=== PATIENT | male | born 1955 | race Caucasian/White ===

== ENCOUNTER → 2024-08-24 13:50 | Outpatient (REF) | payer OTHER, SELFPAY | LOC: HWRAD 13:50 | PROVIDERS: ATTENDING PHYSICIAN Family Medicine | DX: M54.50 Low back pain, unspecified (principal) | CPT/HCPCS: 72110 ==

== ENCOUNTER → 2024-09-29 11:54 | Outpatient (REF) | payer OTHER, SELFPAY | LOC: MRI 3T 11:54 | PROVIDERS: ATTENDING PHYSICIAN Pain Medicine Interventional Pain Medicine; FAMILY PHYSICIAN Family Medicine | DX: M54.16 Radiculopathy, lumbar region (principal) | CPT/HCPCS: 72148 ==

== ENCOUNTER 2024-10-08 08:19 | Emergency (ER) | payer OTHER, SELFPAY ==
[2024-10-08 08:31] VITALS: BP 155/90
[2024-10-08 09:35] VITALS: BP 143/70
--- NOTE | 2024-10-08 09:39 | ED.GENMED ---
History of Present Illness
General
Chief Complaint: Back Pain
Time Seen by Provider: 10/08/24 09:15
History of Present Illness
History of Present Illness:
Patient is a 68-year-old man with history of A-fib on Xarelto presenting to the emergency department with back pain. Patient states that since August he has had right-sided lower back pain that radiates down his right leg. He went to his primary
care doctor who started him on a Medrol Dosepak as well as physical therapy. He is currently still with physical therapy. The pain did improve with the Medrol Dosepak however reoccurred. He then went to see an orthopedic surgeon who prescribed
him prednisone 20 mg daily. He does state that he has 2 days left of it. He did have an MRI completed. I did review patient's MRI completed on September 29 which does show severe compression at the right L5-S1 secondary to a cyst as well as left
disc herniation at L4-L5. Patient denies any fevers chills. No spinal injections. No saddle anesthesia. No urinary incontinence no urinary retention. No weight loss. No night sweats. No abdominal pain. No trauma. This does feel similar to
his sciatica however the pain has become more severe and relentless so he came in for further options.
Past History
Past History
ED Past Medical History: HTN, [place] and Other (Genital herpes, rosacea)
ED Past Surgical History: Cardiac (Cardiac stent 01/2015) and Other ([place] tooth extraction)
Social History
Tobacco: Non-smoker
Alcohol: None
Drug: None
Personal:
Living: with family
Phy Exam
Physical Exam
Physical Exam:
GENERAL: in no acute distress
HEENT: normocephalic, extraocular movements intact
Back: No midline spinal tenderness
NECK: normal inspection
RESPIRATORY: no respiratory distress, clear to auscultation bilaterally
CARDIOVASCULAR: regular rate and rhythm
ABDOMEN/: soft, non-distended, non-tender to palpation, no rebound or guarding
EXTREMITIES: non-tender, no edema/swelling
NEUROLOGIC: awake and alert, moves all extremities, no gross motor or sensory
SKIN: warm
Course
Orders/Labs/Results
Orders:
Orders
10/08/24 09:36
Acetaminophen [Tylenol] 1,000 mg PO NOW STA
Prednisone [Deltasone] 50 mg PO NOW STA
10/08/24 09:45
Lidocaine [Lidocaine 4% Patch] 1 patch TOPICAL DAILY
Apply Lidocaine patch(s) to:: right lower back
Vital Signs
Initial and Last Documented VS:
Initial Vital Signs
Temp Pulse Resp BP Pulse Ox
98.5 F 73 18 155/90 99
10/08/24 08:31 10/08/24 08:31 10/08/24 08:31 10/08/24 08:31 10/08/24 08:31
Last Documented Vital Signs
Temp Pulse Resp BP Pulse Ox
98.5 F 54 16 130/83 97
10/08/24 08:31 10/08/24 10:40 10/08/24 10:40 10/08/24 10:40 10/08/24 10:40
MDM/Problems Addressed
Differential Diagnosis Includes:
Patient is a 68-year-old man presenting to the emergency department with right-sided lower back pain that radiates down his leg for the past month. Vitals are unremarkable and exam shows no midline spinal tenderness. There are no red flags to
suggest cauda equina epidural abscess discitis. Patient exam not consistent with renal etiology or aortic pathology. After shared decision making we will give prednisone here in the emergency department as well as Tylenol and a lidocaine patch.
*Critical Care Note
Total Time (30-74mins, 75-104mins- exclusive of procedures): Not Applicable
Update Note
Update Note:
On reevaluations patient's pain has significantly improved. It is not resolved. I did discuss I cannot get the pain completely away but could decrease it to a manageable level. Patient advised on using Tylenol and lidocaine outpatient. He is
advised not to put heating pad over the lidocaine patch. Regarding the prednisone we did discuss increasing the dose versus keeping it the same for the neck few days. Patient at this time opted to keep the prednisone the same as he does not want
to be on systemic steroids for a prolonged period of time which is reasonable. Patient will give his orthopedic surgeon on-call to see if that he get his appointment adjusted. Strict return precautions given. Will discharge at this time
ED Attending Note
-
Portions of this chart may have been created with voice recognition software.� Occasional wrong word or��sound alike� substitutions may have occurred due to the inherent limitations of voice recognition software.
Discharge Plan
Departure
Patient Disposition: Home (Routine Discharge)
Date of Disposition: 10/08/24
Time of Disposition: 10:45
Patient with high blood pressure during this ER visit?: No
Discharge Problem:
Sciatica
Instructions: Sciatica (DC)
Prescriptions:
No Action
methotrexate sodium 2.5 MG tablet
7.5 mg PO TU@0800
[id number]-arn-VK-lycopen-lutein [Centrum Silver] 1 EACH tablet
1 ea PO DAILY
nitroglycerin 0.4 MG tablet, sublingual
0.4 mg sublingual [id number] PRN (Reason: Chest Pain ) Qty: 25 2RF
Patient Comments:
pt states last used 'sometime in
folic acid 0.4 MG tablet
0.8 mg PO DAILY
lisinopril 5 MG tablet
5 mg PO DAILY
fluticasone propionate 1 SPRAY spray,suspension
2 spray intranasal DAILYPRN PRN (Reason: ALLERGIES)
atorvastatin 40 MG tablet
40 mg PO DAILY
fluocinonide 1 APPLIC cream
0 applic topical BID PRN (Reason: psoriasis total body)
metoprolol tartrate 25 MG tablet
25 mg PO BID
rivaroxaban [Xarelto] 20 MG tablet
20 mg PO QPM
golimumab [Simponi] 100 MG/ML pen injector
50 mg SC MONTHLY
aspirin 81 MG tablet,delayed release (DR/EC)
81 mg PO DAILY Qty: 0 0RF
Referrals:
Andrea Khan, DO [Family Provider] -
Activity Restrictions/Additional Instructions:
We discussed pain medications:
You may take Tylenol (also known as Acetaminophen) for pain.
You may take 1000mg Acetaminophen (two extra-strength tablets) per dose, which should be taken every 6 hours.
If you have normal strength Tylenol, you can take 650mg (two normal strength tablets) every 4-6 hours.
Never take more than as directed on the bottle.
You may also benefit from using a Lidocaine Patch (also known as 'Salon Pas'), which is an over the counter pain patch.
Place it just over the site of pain, avoiding areas of skin damage, as per instructions on the patch.
Please see your primary care doctor soon to be reevaluated and to make sure that you are improving. We have included information about establishing care with a doctor if you do not have one.
We talked about your evaluation, diagnosis, and treatment in the Emergency Department today. You must see your primary doctor for recheck and followup care in order to evaluate your progress or any changes. Have your doctor recheck the test
results/information from the ED visit. As discussed, RETURN to the ED if you develop worsening/changing symptoms or have no improvement in symptoms after the treatments provided.
Interventions
Interventions:
*Risk Screen - Suicide Last Done: 10/08/24 08:31
*General Assessment Last Done: 10/08/24 09:35
ED- Fall Risk Assessment Last Done: 10/08/24 09:35
*ED COVID-19 Vaccine History Last Done: 10/08/24 09:35
ED-Musculoskeletal Assessment Last Done: 10/08/24 09:35
Discharge Date and Time
Print Language: BENINESE
[2024-10-08 09:40] VITALS: BMI 28.9
[2024-10-08] MEDS: DELTASONE 50 MG PO (09:48)
[2024-10-08] MEDS: TYLENOL 1000 MG PO (09:49)
[2024-10-08] MEDS: LIDOCAINE 4% PATCH 1 PATCH TOPICAL (09:49)
[2024-10-08 10:40] VITALS: BP 130/83
--- NOTE | 2024-10-08 10:44 | EDRN ---
Dr. Domínguez in room w/ pt at this time.
--- NOTE | 2024-10-08 10:46 | EDRN ---
Pt ate all of the pancakes (3 tiny pancakes). Pt states he did not like fruit in fruit cup and raisin bran cereal so did not eat these.
--- NOTE | 2024-10-08 11:10 | EDRN ---
Pain returned to severe just prior to discharge. Pt has declined narcotics during this stay. Pt was informed that pain from sciatica is severe. Pt was informed that steroids, tylenol and lidocaine patch are best that we can do at this time and may
not take away the pain. Back discharge instructions discussed w/ pt and pt voiced understanding. Pt left to [facility] to await his spouse to take hime home via w/c.
== END 2024-10-08 11:15 | disposition home or self-care (01) ==
LOC: EMR 08:19
PROVIDERS: EMERGENCY PHYSICIAN Student in an Organized Health Care Education/Training Program; FAMILY PHYSICIAN Family Medicine
DX: M54.41 Lumbago with sciatica, right side (principal); M79.604 Pain in right leg; I48.91 Unspecified atrial fibrillation; I10 Essential (primary) hypertension; I25.2 Old myocardial infarction; Z79.01 Long term (current) use of anticoagulants; Z95.5 Presence of coronary angioplasty implant and graft; Z88.8 Allergy status to other drugs, medicaments and biological substances; Z79.82 Long term (current) use of aspirin
CPT/HCPCS: 99283

== ENCOUNTER 2024-12-28 06:07 | Day surgery (SDC) | payer OTHER, SELFPAY ==
[2024-12-14 11:30] LABS: Hematocrit 41.5 % (39.0-52.0); Hemoglobin 14.1 g/dL (13.0-18.0); Mean Corpuscular Hgb 32.2 pg (27.0-31.0); Mean Corpuscular Volume 94.7 fL (80.0-94.0); Mean Platelet Volume 12.2 fL (7.4-10.4); Platelet Count 171 10^3/uL (130-400); Red Blood Cell Count 4.38 10^6/uL (4.70-6.10); Red Cell Dist. Width 13.4 % (11.5-14.5); White Blood Cell Count 6.3 10^3/uL (4.8-10.8)
[2024-12-14 12:03] LABS: ALT (SGPT) 25 U/L (0-50); AST (SGOT) 29 U/L (17-59); Albumin 3.8 g/dl (3.5-5.0); Alkaline Phosphatase 72 U/L (38-126); Blood Urea Nitrogen 16 mg/dl (9-20); Calcium 9.1 mg/dl (8.4-10.2); Carbon Dioxide 30 mmol/L (22-30); Chloride 104 mmol/L (98-107); Glucose 95 mg/dl (70-99); Potassium 4.4 mmol/L (3.5-5.1); Sodium 141 mmol/L (135-145); Total Bilirubin 0.8 mg/dl (0.2-1.3); Total Protein 6.2 g/dl (6.3-8.2); eGFR > 60.00
[2024-12-14 14:06] VITALS: BMI 26.6
[2024-12-23 15:32] VITALS: BMI 26.6
[2024-12-28] VITALS (7 sets, daily range): BP systolic 137–162; BP diastolic 74–78
[2024-12-28] MEDS: CELEBREX 200 MG PO (07:52)
[2024-12-28] MEDS: TYLENOL 1000 MG PO (07:52)
[2024-12-28] MEDS: LYRICA 150 MG PO (07:52)
[2024-12-28] MEDS: METHOCARBAMOL 750 MG PO (07:53)
[2024-12-28] MEDS: NORMOSOL-R/PLASMALYTE-A 1000 IV (07:55)
== END 2024-12-28 11:15 | disposition home or self-care (01) ==
LOC: SDS 06:07
PROVIDERS: ATTENDING PHYSICIAN Orthopaedic Surgery Orthopaedic Surgery of the Spine; FAMILY PHYSICIAN Family Medicine; OTHER PHYSICIAN Internal Medicine Cardiovascular Disease
DX: M71.38 Other bursal cyst, other site (principal); M54.50 Low back pain, unspecified; Z79.01 Long term (current) use of anticoagulants
CPT/HCPCS: 63267; 88304; 36415; 72020; 80053; 85027; 87070

== ENCOUNTER 2025-04-20 12:18 | Emergency (ER) | payer OTHER, SELFPAY ==
[2025-04-20 12:41] VITALS: BP 143/89
[2025-04-20 13:07] LABS: Hematocrit 42.9 % (39.0-52.0); Hemoglobin 15.0 g/dL (13.0-18.0); Mean Corp Hgb Conc. 35.0 g/dL (33.0-37.0); Mean Corpuscular Volume 91.5 fL (80.0-94.0); Nucleated Red Blood Cells % 0 % (-); Platelet Count 178 10^3/uL (130-400); Red Cell Dist. Width 15.4 % (11.5-14.5)
[2025-04-20 13:29] LABS: ALT (SGPT) 24 U/L (0-50); AST (SGOT) 27 U/L (17-59); Albumin 4.1 g/dl (3.5-5.0); Alkaline Phosphatase 88 U/L (38-126); Blood Urea Nitrogen 17 mg/dl (9-20); Calcium 9.3 mg/dl (8.4-10.2); Carbon Dioxide 28 mmol/L (22-30); Chloride 103 mmol/L (98-107); Glucose 104 mg/dl (70-99); Potassium 4.5 mmol/L (3.5-5.1); Sodium 137 mmol/L (135-145); Total Protein 7.1 g/dl (6.3-8.2); eGFR > 60.00
[2025-04-20 13:41] LABS: Troponin I < 0.012 ng/ml
[2025-04-20 15:19] VITALS: BMI 26.6
[2025-04-20 15:20] VITALS: BP 195/90
--- NOTE | 2025-04-20 15:56 | ED.GENMED ---
History of Present Illness
General
Chief Complaint: Chest Pain
Source: patient
Exam Limitations: none
Time Seen by Provider: 04/20/25 15:28
Nursing documentation reviewed up to this point in time: agreed with
History of Present Illness
History of Present Illness:
69-year-old male with medical history of hypertension, hyperlipidemia, atrial fibrillation/flutter on Xarelto, CAD status post stent, BPH who presents to the emergency room with his for evaluation of chest pain. Patient notes that he has
recently been undergoing treatment for a left chest wall cellulitis�he reports that he developed redness, tenderness in the left chest/shoulder about a month ago, waited 10 days before he sought care and was started on antibiotics (Keflex). He took
a 10-day course of antibiotics with improvement but not complete resolution, saw his primary doctor a few days ago and was written for an additional 5-day course of Keflex and is on day 2 of 5 of the second course with continued improvement of his
symptoms. He is in the emergency room today for evaluation of left chest pain. He reports that this has been ongoing for the past 2 to 3 days. He reports a vague aching pain in the left chest that radiates to the left scapular region. Somewhat
worse with deep breaths, no other triggering or relieving factors noted. He reports mild associated shortness of breath. He denies any associated cough. He denies any associated fever. He has not had any nausea, vomiting, diaphoresis, abdominal
pain. He denies any other acute complaints.
Past History
Past History
ED Past Medical History: HTN, [place] and Other (Genital herpes, rosacea)
ED Past Surgical History: Cardiac (Cardiac stent 01/2015) and Other ([place] tooth extraction)
Social History
Tobacco: Non-smoker
Alcohol: None
Drug: None
Personal:
Living: with family
Review of Systems
Review of Systems
All Other Systems: ROS reviewed and negative except as documented in HPI and ROS
Constitutional: Denies fever or chills
Respiratory: Reports trouble breathing; Denies cough
Cardiac: Reports chest pain; Denies diaphoresis or palpitations
ABD/GI: Denies abdominal pain, nausea, vomiting or diarrhea
: Denies flank pain
Musculoskeletal: Denies neck pain or back pain
Neurological: Denies dizzy or headache
Phy Exam
Physical Exam
Physical Exam:
General: Awake, alert, oriented x3; no acute distress
Head: Normocephalic, atraumatic
Eyes: Conjunctiva normal, sclera anicteric
Throat: Airway intact, handling secretions
Neck: Trachea midline, no JVD
Lungs: Clear to auscultation bilaterally, no wheezing, rales, rhonchi
Heart: Regular rate and rhythm, no murmurs, gallops, or rubs; very small area of mild erythema left upper chest wall that is not indurated, warm, tender to the touch with no pustules or vesicles noted
Abd: Soft, non distended, nontender
Neuro: No gross deficits
Skin: Chest wall findings as above
Extremities: No edema in extremities, no calf tenderness, equal pulses in all extremities
Scores
Heart Failure Risk
Heart Failure Risk Score: Not Applicable
Heart Score for Chest Pain Patients
STEMI patient?: No
History: Slightly or Non-Suspicious
ECG: Normal
Age: >/= 65 years
Risk Factors: >/= 3 Risk Factors or History of CAD
Troponin: </= Normal Limit
Heart Score for Chest Pain Patients: 4
Heart Score Risk: 20.3% MACE over next 6 weeks
Withdrawal Assessment of Alcohol
Withdrawal Assessment Completed?: Not applicable
Course
Orders/Labs/Results
Orders:
Orders
04/20/25 12:19
Electrocardiogram (*1) Urgent
Reason for Study: Chest Pain
EKG- Treatment ONCE
04/20/25 12:42
CR Chest - 2 Views Urgent
Comment:
Reason For Exam: chest pain
04/20/25 12:53
Complete Blood Count/With Diff Urgent
Comprehensive Metabolic Panel Urgent
Troponin I Urgent
04/20/25 16:17
D-Dimer Urgent
Troponin I Urgent
Abnormal Lab Results
04/20/25
12:53
RBC 4.69 L 10^6/uL
(4.70-6.10)
MCH 32.0 H pg
(27.0-31.0)
RDW 15.4 H %
(11.5-14.5)
MPV 11.4 H fL
(7.4-10.4)
Absolute Monos (auto) 0.8 H 10^3/uL
(0.1-0.6)
Monocytes % 11.0 H %
(1.7-9.3)
Glucose 104 H mg/dl
(70-99)
04/20/25 12:53
04/20/25 12:53
Vital Signs
Initial and Last Documented VS:
Initial Vital Signs
Temp Pulse Resp BP Pulse Ox
36.9 C 68 16 143/89 97
04/20/25 12:41 04/20/25 12:41 04/20/25 12:41 04/20/25 12:41 04/20/25 12:41
Last Documented Vital Signs
Temp Pulse Resp BP Pulse Ox
36.9 C 58 13 160/86 99
04/20/25 12:41 04/20/25 16:16 04/20/25 15:30 04/20/25 16:16 04/20/25 16:16
MDM/Problems Addressed
Differential Diagnosis Includes:
Costochondritis, GERD, pneumothorax, PE, ACS
MDM/Problems Addressed:
69-year-old male presents for evaluation of atypical left-sided chest pain that radiates to the scapula ongoing for the past few days. Somewhat worse with deep inspiration with mild shortness of breath no other acute symptoms. He has been dealing
with some left chest wall cellulitis and is finishing up a second course of Keflex�the symptoms continue to improve. He says that pain today is separate from pain he has been having from chest wall cellulitis. He has no vesicles to suggest that
this is actually shingles an area is not tender; no target lesion suggest Lyme's although he says primary doctor recently sent Lyme's testing which is pending. Hypertensive otherwise normal vitals. Physical exam as above. He had lab work sent in
triage including a CBC and a CMP which showed no clinically significant abnormalities. He had an EKG which showed sinus rhythm with no acute ischemic changes. Initial troponin undetectable. Will add chest x-ray, repeat troponin, check D-dimer.
Monitor closely reassess at the above.
Chest x-ray reviewed by me shows no acute disease. Repeat troponin undetectable. D-dimer negative. Patient has remained clinically stable throughout ED observation. Very low suspicion for emergent pathology at this point. He could have some
residual pain from chest wall cellulitis although low suspicion given minimal tenderness. He could also have some GERD with recent antibiotic course. Stable to follow-up with his primary care physician as an outpatient. Patient feels comfortable
with this plan. Spoke about return precautions all questions answered.
Chronic conditions affecting care:
CAD, atrial fibrillation
*Radiology
Radiology exam reviewed: preliminary read by ED provider and radiology read reviewed
*Pulse Oximetry
SaO2: 99
Oxygen Mode of Delivery: Room air
Patient hypoxic: no (99%)
*EKG
Interpreted by ED Provider?: Yes
Heart Rate: 63
Rate: normal
Rhythm: sinus
[place]: normal axis
Interval: normal interval
QRS Pattern: normal QRS
Ischemia: no ischemia
*Critical Care Note
Total Time (30-74mins, 75-104mins- exclusive of procedures): Not Applicable
Data Reviewed
Review of Other/Old Records Reveals: Labs and Records
Source: patient, records and spouse
ED Attending Note
-
Portions of this chart may have been created with voice recognition software.� Occasional wrong word or��sound alike� substitutions may have occurred due to the inherent limitations of voice recognition software.
Discharge Plan
Departure
Patient Disposition: Home (Routine Discharge)
Date of Disposition: 04/20/25
Time of Disposition: 17:11
Patient with high blood pressure during this ER visit?: Yes
Discharge Problem:
Chest pain
Instructions: Chest Pain PCP Follow Up
Prescriptions:
No Action
methotrexate sodium 2.5 MG tablet
7.5 mg PO TU
Centrum Silver 1 EACH tablet
1 ea PO DAILY@1200
nitroglycerin 0.4 MG tablet, sublingual
0.4 mg sublingual [id number] PRN (Reason: Chest Pain ) Qty: 25 2RF
folic acid 0.4 MG tablet
0.8 mg PO DAILY
atorvastatin 40 MG tablet
40 mg PO DAILY
metoprolol tartrate 25 MG tablet
12.5 mg PO BID
Xarelto 20 MG tablet
20 mg PO QPM
lisinopril 20 mg tablet
20 mg PO DAILY
amlodipine 2.5 mg tablet
2.5 mg PO DAILY@1200
allopurinol 100 mg tablet
100 mg PO DAILY@1200
oxycodone-acetaminophen 5-325 mg Tablet
1 tab PO Q6H PRN (Reason: pain)
finasteride 5 mg tablet
5 mg PO DAILY
Humira Pen 40 mg/0.8 mL Pen Injector Kit
40 mg SC Q2W
acetaminophen 500 mg Tablet
1,000 mg PO Q6H PRN (Reason: pain )
Referrals:
Andrea Khan DO [Family Provider, Family Practice] - Follow up in 5-7 days
Activity Restrictions/Additional Instructions:
Thank you for visiting the Emergency Department at [facility].
1. Please schedule a follow up appointment as directed. Call first thing tomorrow morning to make an appointment.
2. If indicated, please take your medications as instructed and indicated on discharge paperwork.
3. If any of your symptoms do not improve, or persist, or become more severe within 6-12 hours, please return to the emergency department for further care.
4. Please return to the emergency department if you develop a headache, neck pain/stiffness, fever greater than 100.4F, chest pain, shortness of breath, persistent nausea, vomiting, slurred speech, difficulty walking, numbness/tingling, weakness,
signs of infection or any other symptoms that are worrisome to you.
Please call [phone] if you have any questions.
Interventions
Interventions:
*Risk Screen - Suicide Last Done: 04/20/25 12:41
*General Assessment Last Done: 04/20/25 12:41
*Neglect/Abuse Screening Last Done: 04/20/25 12:41
*ED- Fall Risk Assessment Last Done: 04/20/25 12:41
*ED COVID-19 Vaccine History Last Done: 04/20/25 12:41
ED- Cardiac Assessment Last Done: 04/20/25 15:19
Discharge Date and Time
Print Language: HUNGARIAN
[2025-04-20 16:16] VITALS: BP 160/86
[2025-04-20 16:47] LABS: D-Dimer < 0.27 ug/mlFEU (0.00-0.50)
[2025-04-20 16:53] LABS: Troponin I < 0.012 ng/ml
[2025-04-20 17:00] VITALS: BP 166/88
== END 2025-04-20 17:22 | disposition home or self-care (01) ==
LOC: EMR 12:18
PROVIDERS: Emergency Medicine; EMERGENCY PHYSICIAN Emergency Medicine; FAMILY PHYSICIAN Family Medicine
DX: R07.89 Other chest pain (principal); I10 Essential (primary) hypertension; E78.00 Pure hypercholesterolemia, unspecified; I48.91 Unspecified atrial fibrillation; I25.10 Atherosclerotic heart disease of native coronary artery without angina pectoris; N40.0 Benign prostatic hyperplasia without lower urinary tract symptoms; Z79.01 Long term (current) use of anticoagulants; Z95.5 Presence of coronary angioplasty implant and graft
CPT/HCPCS: 99283; 71046; 80053; 84484; 85025; 85379; 93005

== ENCOUNTER → 2025-05-11 13:48 | Outpatient (REF) | payer OTHER, SELFPAY | LOC: HWRCS 13:48 | PROVIDERS: ATTENDING PHYSICIAN Internal Medicine Cardiovascular Disease; FAMILY PHYSICIAN Family Medicine | DX: Z95.5 Presence of coronary angioplasty implant and graft (principal); I10 Essential (primary) hypertension; R07.89 Other chest pain | CPT/HCPCS: 93306 ==